=== PATIENT | female | born 1960 | race Caucasian/White ===

== ENCOUNTER 2019-10-24 12:19 | Outpatient (CLI) | payer BC, SELFPAY ==
--- NOTE | 2019-10-24 | ECG_ITS ---
Measurements Intervals Rule Rate: 78 P: 60 WI: 170 QRS: 43 QRSD: 82 T: 33 QT: 370 QTc: 424 Interpretive Statements SINUS RHYTHM BORDERLINE ST ABNORMALITY- ANT/INF LEADS BORDERLINE ECG Electronically Signed On 10-24-2019 14:38:16 AIR TESTER by Marcio Ann D.O.
[2019-10-24 13:06] LABS: Hematocrit 39.3 % (37.0-47.0); Mean Corpuscular HGB Conc 33.1 g/dl (32-36); Mean Corpuscular Hemoglobin 31.7 pg (26-34); Mean Corpuscular Volume 95.9 fl (80-100); Mean Platelet Volume 9.6 fl (7.4-10.4); Platelet Count Result 278 k/mm3 (150-375); Red Cell Distribution Width 12.6 % (11.5-14.5); White Blood Count 5.8 K/mm3 (4.5-10.0)
[2019-10-24 13:12] LABS: Blood Urea Nitrogen 9 mg/dL (7-17); Calcium 9.9 mg/dL (8.4-10.2); Carbon Dioxide 27 mmol/L (22-30); Chloride 101 mmol/L (98-107); Estimated Glomerular Filt Rate > 60; Glucose 95 mg/dL (65-105); Potassium 3.9 mmol/L (3.4-5.0); Sodium 137 mmol/L (137-145)
== END 2019-10-24 12:20 | disposition home or self-care (01) ==
DX: Z01.818 Encounter for other preprocedural examination (principal); R94.31 Abnormal electrocardiogram [ECG] [EKG]
CPT/HCPCS: 36415; 80048; 85027; 93005

== ENCOUNTER 2019-11-16 14:34 | Outpatient (CLI) | payer BC, SELFPAY ==
--- NOTE | ~2019-11-16 | US_ITS ---
EXAMINATION: US venous doppler [facility] DATE: 11/16/2019 15:47 INDICATION: Left leg swelling TECHNIQUE: Mancini scale images without and with compression and Doppler images of the left lower extrem ity veins were obtained. COMPARISON: None. FINDINGS: There is thrombosis of the left posterior tibial and peroneal veins. The left common femora l vein, profunda femoral vein, femoral vein, popliteal vein, and greater saphenous vein are patent. IMPRESSION: 1. Thrombosis of the left posterior tibial and peroneal veins. Reviewed, dictated and finalized at location A. ORMANCE IMPROVEMENT SPECIALIST
== END 2019-11-16 14:35 | disposition home or self-care (01) ==
PROVIDERS: Visit Provider Neurological Surgery
DX: I82.452 Acute embolism and thrombosis of left peroneal vein (principal); I82.442 Acute embolism and thrombosis of left tibial vein
CPT/HCPCS: 93971

== ENCOUNTER 2019-11-22 12:41 | Outpatient (CLI) | payer BC, SELFPAY ==
--- NOTE | ~2019-11-22 | US_ITS ---
EXAMINATION:US venous doppler LE LT INDICATION:History of DVT. Left lower extremity pain TECHNIQUE: Multiple grayscale, color flow and Doppler images of the left lower extremity deep venous systems were obtained and reviewed. COMPARISON:11/16/2019 FINDINGS: The common femoral, superficial femoral and popliteal veins demonstrate normal respiratory variation, augmentation and compressibility. Color flow is also seen within the posterior tibial, pe roneal, greater saphenous and profunda veins. Interval resolution of left lower extremity DVT. IMPRESSION: 1: No lower extremity deep venous thrombosis. Reviewed, dictated and finalized at location B. CAL BILLING ASSISTANT
== END 2019-11-22 12:42 | disposition home or self-care (01) ==
LOC: ANHIMG 12:46
PROVIDERS: Visit Provider Neurological Surgery
DX: R22.42 Localized swelling, mass and lump, left lower limb (principal); M79.662 Pain in left lower leg
CPT/HCPCS: 93971

== ENCOUNTER 2019-12-01 12:58 | Outpatient (CLI) | payer BC, SELFPAY ==
--- NOTE | ~2019-12-01 | US_ITS ---
EXAMINATION: US venous doppler [facility] EXAM DATE: 12/01/2019 13:40 INDICATION: Left leg pain. TECHNIQUE: Multiple grayscale, color flow and Doppler images of the left lower extremity deep venous system were obtained and reviewed. Comparison is made to prior examination from 11/22/2019. FINDINGS: The left common femoral, femoral and profunda veins demonstrate normal color flow, respirat ory variation, augmentation and compressibility. Compressibility, color flow confirmed within the le ft popliteal, posterior tibial, peroneal, and greater saphenous veins. IMPRESSION: 1. No left lower extremity deep venous thrombosis. Reviewed, dictated and finalized at location B.
== END 2019-12-01 12:59 | disposition home or self-care (01) ==
PROVIDERS: Visit Provider Neurological Surgery
DX: R22.42 Localized swelling, mass and lump, left lower limb (principal); M79.662 Pain in left lower leg
CPT/HCPCS: 93971

== ENCOUNTER 2020-02-15 09:43 | Emergency (ER) | payer BC, SELFPAY ==
[2020-02-15 10:01] VITALS: BP 141/89; PULSE 94; RESP 16; TEMP 36.4; O2SAT 98
--- NOTE | 2020-02-15 10:01 | ED.EAR ---
HPI - Ear Problem General Chief complaint: Ear Stated complaint: Ear ache Time Seen by Provider: 02/15/20 10:01 Source: patient Mode of arrival: ambulatory Limitations: no limitations History of Present Illness HPI Narrative: Yumiko Sapp is a 59-year-old female with a PMH of high cholesterol who comes to express care for R ear pain. States has pain into R lower jaw. Related Data Allergies Allergy/AdvReac Type Severity Reaction Status Date / Time No Known Allergies Allergy Mild Verified 12/11/19 14:55 Review of Systems Review of Systems: Narrative: CONSTITUTIONAL: Denies fever, chills, sweats. EYES: Denies visual changes, redness, discharge. ENT: Denies rhinorrhea, congestion, sore throat, R otalgia. CARDIOVASCULAR: Denies chest pain, palpitations, edema. RESPIRATORY: Denies dyspnea, wheezing, cough GASTROINTESTINAL: Denies abdominal pain, nausea, vomiting, diarrhea. GENITOURINARY: Denies dysuria, hematuria, abnormal discharge SKIN: Denies rash or itching. NEUROLOGIC: Denies numbness, or focal weakness. PSYCHIATRIC: Denies anxiety or depression. PMFSH Past Medical History Medical History Back pain History of DVT (deep vein thrombosis) Surgical History Surgical History H/O: hysterectomy History of lumbar surgery S/P cervical spinal fusion Family History Family History Father Carcinoma of colon Hypertension Mother Breast cancer Hypertension Sibling Hypertension Social History Social History Smoking status: Never smoker Second hand tobacco smoke exposure: No Alcohol intake: current Drinks per week: 3 Substance use: never Substance use type: does not use Gender identity (if verbalized by the patient): Female Comments At time of signature, I agree with nursing past medical, surgical, social and family history. There is no relevant family history pertinent to the presenting complaint. Exam Narrative: Exam Narrative: GENERAL: This is a well-nourished, well-developed patient, in mild distress. HEAD: normocephalic, atraumatic. EYES: Sclera clear/white. Vision is grossly intact. EARS: External ears normal, auditory L canals clear and R hard to visualize TM, some hard appearing cerumen in canal. Hearing grossly intact. NOSE: External nose normal without nasal discharge, nares without redness, no rhinorrhea. THROAT: Mucous membranes moist, NECK: Neck supple,R jaw pain below R ear CARDIOVASCULAR: Regular rate and rhythm without murmurs, gallops, or rubs. RESPIRATORY: Clear to auscultation. Breath sounds equal bilaterally. No wheezes, rales, or rhonchi. GASTROINTESTINAL: Abdomen soft, non-tender, SKIN: warm, intact with no suspicious lesions or rash, good texture and turgor. NEURO: awake, alert, and oriented to person, place and time. There were no obvious focal neurologic abnormalities. Steady gait EXTREMITIES: Normal range of motion. BACK: Nontender without deformity Course Course Emergency Course: started on debrox and ear drops Vital Signs Vital signs: Vital Signs Temperature 97.6 F 02/15/20 10:01 Pulse Rate 94 02/15/20 10:01 Respiratory Rate 16 02/15/20 10:01 Blood Pressure 141/89 H 02/15/20 10:01 Pulse Oximetry 98 02/15/20 10:01 Temperature 97.6 F 02/15/20 10:01 Pulse Rate 94 02/15/20 10:01 Respiratory Rate 16 02/15/20 10:01 Blood Pressure 141/89 H 02/15/20 10:01 Pulse Oximetry 98 02/15/20 10:01 Medical Decision Making Differential Diagnosis Differential Diagnosis: Ear pain versus viral infection versus cerumen versus bacterial infection Vital Signs Vital Signs: Vital Signs Temperature 97.6 F 02/15/20 10:01 Pulse Rate 94 02/15/20 10:01 Respiratory Rate 16 02/15/20 10:01 Blood Pressure 141/89 H
== END 2020-02-15 10:28 | disposition home or self-care (01) ==
PROVIDERS: Emergency Provider Nurse Practitioner; PCP Family Medicine
DX: H92.01 Otalgia, right ear (principal); E78.00 Pure hypercholesterolemia, unspecified; Z86.718 Personal history of other venous thrombosis and embolism; Z98.1 Arthrodesis status
CPT/HCPCS: 99213; G0463

== ENCOUNTER → 2020-07-01 15:02 | Outpatient (CLI) | payer BC, SELFPAY ==
--- NOTE | ~2020-07-01 | US_ITS ---
EXAMINATION: US venous doppler [facility] DATE: 07/01/2020 15:30 INDICATION: Lower limb pain TECHNIQUE: Mancini scale images without and with compression and Doppler images of the bilateral lower e xtremity veins were obtained. COMPARISON: 12/01/2019 FINDINGS: The right common femoral vein, profunda femoral vein, femoral vein, popliteal vein, peroneal trunk, p osterior tibial veins, and greater saphenous vein are patent. The left common femoral vein, profunda femoral vein, femoral vein, popliteal vein, peroneal trunk, po sterior tibial veins, and greater saphenous vein are patent. IMPRESSION: 1. Patent bilateral lower extremity veins. No evidence of deep venous thrombosis. Reviewed, dictated and finalized at location A. IMPRESSION: 1. Patent bilateral lower extremity veins. No evidence of deep venous thrombosi s.
== END ==
PROVIDERS: PCP Family Medicine; Visit Provider Physician Assistant
DX: M79.605 Pain in left leg (principal)
CPT/HCPCS: 93970

== ENCOUNTER 2022-09-07 18:57 | Emergency (ER) | payer BC, SELFPAY ==
[2022-09-07 19:07] VITALS: BP 142/63; PULSE 90; RESP 16; TEMP 36.6; O2SAT 100
--- NOTE | 2022-09-07 19:54 | ED.URI ---
HPI - URI/Sore Throat General Chief Complaint: Upper Respiratory Infection Stated Complaint: Sore Throat, Ear, Back, Neck Pain Source: patient Mode of arrival: ambulatory Limitations: no limitations History of Present Illness HPI Narrative: 61-year-old female presents to Express Care complains of sore throat, headache, right ear pain, runny nose, fatigue and diarrhea since yesterday. Patient denies fevers, nausea or vomiting. Patient has been taking [id number] ibuprofen with minimal relief. 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 Patient is influenza vaccinated MD elicited complaint: sore throat, rhinorrhea and nasal congestion Onset (ago): day(s) (2) Able to tolerate fluids by mouth: Yes Exacerbating factors: nothing Context: sick contacts Treatments prior to arrival: ibuprofen Related Data Allergies Allergy/AdvReac Type Severity Reaction Status Date / Time No Known Allergies Allergy Mild Verified 09/07/22 19:05 Review of Systems Constitutional: Constitutional: Denies chills, Denies fatigue, Denies fever(s) and Denies weakness ENT: Denies dizziness, Denies epistaxis, Reports nasal congestion and Reports sore throat Comments: Right ear pain Cardiovascular: Cardiovascular: Denies chest pain Respiratory: Respiratory: Reports cough, Denies dyspnea and Denies wheezing Gastrointestinal: Gastrointestinal: Denies abdominal pain, Denies diarrhea, Denies nausea and Denies vomiting Integumentary/Breasts: Skin/Breast: Denies rash PMFSH Past Medical History Medical History (Updated 09/07/22 @ 19:58 by Katy Serrano APRN) Back pain History of DVT (deep vein thrombosis) Surgical History Surgical History H/O: hysterectomy History of lumbar surgery S/P cervical spinal fusion Family History Family History Father Carcinoma of colon Hypertension Mother Breast cancer Hypertension Sibling Hypertension Social History Social History Smoking status: Never smoker Second hand tobacco smoke exposure: No Alcohol intake: current Drinks per week: 3 Alcohol use details: social drinker Substance use: never Substance use type: does not use Gender identity (if verbalized by the patient): Female Comments At time of signature, I agree with nursing past medical, surgical, social and family history. There is no relevant family history pertinent to the presenting complaint. Exam Const: General: healthy appearing, no acute distress and alert Nutritional Appearance: well nourished Orientation/consciousness: patient oriented x3 Limitations: no limitations HENMT: Head: normal to inspection Ears: external ears normal, EAC's normal and TM abnormal wth effusion serous on the right and erythematous on the right Face and sinus: normal facial exam Mouth: Yes lip normal and Yes moist mucous membranes Throat: posterior oropharynx normal and uvula midline Neck: Neck: normal visual inspection and no lymphadenopathy Resp: Effort & Inspection: normal respiratory effort and not labored Auscultation: clear to auscultation bilaterally, no crackles, no rales, no rhonchi and no wheezes Cardio: Rate: regular rate Rhythm: regular rhythm Heart sounds: no murmurs Skin: General skin exam: normal color Rashes: no rashes Wounds: no wounds Neuro: General: patient oriented x3 Psych: Affect: normal affect Attitude: cooperative Course Course Level of Care: Express Care Visit Vital Signs Vital signs: Vital Signs Temperature 36.6 C 09/07/22 19:07 Pulse Rate 90 09/07/22 19:07 Respiratory Rate 16 09/07/22 19:07 Blood Pressure 142/63 H 09/07/22 19:07 Pulse Oximetry 100 09/07/22 19:07 Oxygen Delivery Room Air 09/07/22 19:07 Temperature 36.6 C 09/07/22 19:07 Pulse
== END 2022-09-07 20:03 | disposition home or self-care (01) ==
PROVIDERS: Emergency Provider Nurse Practitioner Family; PCP Family Medicine
DX: H65.01 Acute serous otitis media, right ear (principal); Z86.718 Personal history of other venous thrombosis and embolism
CPT/HCPCS: 99213; G0463

== ENCOUNTER 2023-09-04 10:00 | Emergency (ER) | payer BC, SELFPAY ==
[2023-09-04 10:10] VITALS: BP 149/88; PULSE 83; RESP 16; TEMP 37.2; O2SAT 100
--- NOTE | 2023-09-04 10:54 | ED.URI ---
HPI - URI/Sore Throat General Chief Complaint: Upper Respiratory Infection Stated Complaint: cough,headache,sore throat Time Seen by Provider: 09/04/23 10:53 Source: patient and RN notes reviewed Mode of arrival: ambulatory Limitations: no limitations History of Present Illness HPI Narrative: 62-year-old female presents with concern for cough, sinus congestion, headache, general malaise, fatigue. Reports she had symptoms around Thanksgiving time and took a steroid. Reports her symptoms improved when she was finished with the steroid they came right back. She reports she has taken Tessalon Perles with occasional relief of cough. MD elicited complaint: cough and nasal congestion Related Data Allergies Allergy/AdvReac Type Severity Reaction Status Date / Time No Known Allergies Allergy Mild Verified 09/04/23 10:26 Review of Systems Review of Systems: CONSTITUTIONAL: Reports malaise, fatigue. Denies chills, sweats, or fever. EYES: Denies visual changes, redness, or discharge. ENT: Reports rhinorrhea, congestion, sinus pain. Denies otalgia and sore throat. CARDIOVASCULAR: Denies chest pain, palpitations, or edema. RESPIRATORY: Reports croupy cough. Denies dyspnea. GASTROINTESTINAL: Denies abdominal pain, nausea, vomiting, diarrhea SKIN: Denies rash or itching. MUSCULOSKELETAL: Denies myalgia. NEUROLOGIC: Denies headache. All systems reviewed & are unremarkable except as noted in HPI and below PMFSH Past Medical History Medical History (Updated 09/04/23 @ 11:01 by Constance Mcdermott NP) Back pain History of DVT (deep vein thrombosis) Surgical History Surgical History H/O: hysterectomy History of lumbar surgery S/P cervical spinal fusion Family History Family History Father Carcinoma of colon Hypertension Mother Breast cancer Hypertension Sibling Hypertension Social History Social History Smoking status: Never smoker Second hand tobacco smoke exposure: No Alcohol intake: current Drinks per week: 3 Alcohol use details: social drinker Substance use: never Substance use type: does not use Living arrangements: with family Occupation/Education: occupation Gender identity (if verbalized by the patient): Female Comments At time of signature, agree with nursing past medical, surgical, social and family history. There is no relevant family history pertinent to the presenting complaint Exam Narrative: GENERAL: Well-appearing, well-nourished, and in no acute distress. HEAD: Normocephalic EYES: PERRLA, conjunctivae clear ENT: Nares clear, turbinates edematous and erythematous. Mucous membranes moist. TM pearly morrell with dull light reflex bilaterally; no tragal tenderness. Oropharynx not erythematous without lesions. Tonsils not enlarged and without exudate, no drooling, no hoarseness, no trismus, uvula midline. NECK: Supple. No lymphadenopathy CHEST: Clear to auscultation, breath sounds equal. No wheezing, rhonchi, rales, or stridor. No respiratory distress, speaks in full sentences. Cough noted HEART: Regular rate and rhythm. No murmur heard. SKIN: Warm, dry, no rash. NEURO: Alert and oriented x3. PSYCH: Normal mood and affect Course Course Emergency Course: Patient is aware of diagnosis, understands and agrees to treatment plan. Anticipatory guidance given. Patient agrees to follow-up as directed and is aware of reasons to seek care at the emergency department. Portions of this record may have been created with voice recognition software Level of Care: Express Care Visit Vital Signs Vital signs: Vital Signs Temperature 99 F 09/04/23 10:10 Pulse Rate 83 09/04/23 10:10 Respiratory Rate 16 09/04/23 10:10 Blood Pressure 149/88 H 09/04/23 10:10 Pulse Oximetry 100 09/04/23 10:10 Oxygen Delivery
== END 2023-09-04 11:12 | disposition home or self-care (01) ==
PROVIDERS: Emergency Provider Nurse Practitioner; PCP Family Medicine
DX: J32.9 Chronic sinusitis, unspecified (principal); J40 Bronchitis, not specified as acute or chronic; Z86.718 Personal history of other venous thrombosis and embolism
CPT/HCPCS: 99213; G0463

== ENCOUNTER 2024-05-23 16:02 | Outpatient (CLI) | payer BC, SELFPAY ==
--- NOTE | ~2024-05-23 | XR_ITS ---
EXAMINATION: XR hand BI arthritis min 3V DATE: 05/23/2024 16:18 INDICATION: Stiffness of unspecified hand, not elsewhere classified. Hand pain. TECHNIQUE: 4 views of right hand and 4 views of left hand were obtained. COMPARISON: Left hand radiographs 08/08/2012 FINDINGS: RIGHT HAND: Alignment is normal. No fracture. There is mild osteoarthritis of first carpometacarpal j oint and most of the metacarpophalangeal joints and interphalangeal joints. There is moderate osteoar thritis of first interphalangeal joint and second and third distal interphalangeal joints. LEFT HAND: Alignment is normal. No fracture. There is moderate osteoarthritis of first carpometacarpa l joint and mild osteoarthritis of most of the metacarpophalangeal joints and interphalangeal joints. There is moderate osteoarthritis of first interphalangeal joint and second and fourth distal interph alangeal joints and severe osteoarthritis of third distal interphalangeal joint. IMPRESSION: 1. Polyarticular osteoarthritis. Reviewed, dictated and finalized at location A.
== END 2024-05-23 16:03 | disposition home or self-care (01) ==
PROVIDERS: PCP Physician Assistant Medical; Visit Provider Physician Assistant Medical
DX: M15.9 Polyosteoarthritis, unspecified (principal); M25.622 Stiffness of left elbow, not elsewhere classified; M25.621 Stiffness of right elbow, not elsewhere classified
CPT/HCPCS: 73130

== ENCOUNTER 2024-09-04 16:56 | Emergency (ER) | payer BC, SELFPAY ==
--- NOTE | ~2024-09-04 | US_ITS ---
EXAMINATION: US venous doppler [facility] DATE: 09/04/2024 18:35 INDICATION: Right calf pain. TECHNIQUE: Grayscale ultrasound images without and with compression and Doppler ultrasound images of the right lower extremity veins were obtained. COMPARISON: Ultrasound 07/01/2020 FINDINGS: The visualized portions of right common femoral vein, profunda (deep) femoral vein, femoral vein, pop liteal vein, peroneal veins, posterior tibial veins, and greater saphenous vein outflow are patent. IMPRESSION: 1. No deep venous thrombosis. Reviewed, dictated and finalized at location A. ICAL ANALYST
[2024-09-04 17:28] VITALS: BP 175/86; PULSE 87; RESP 16; TEMP 36.7; O2SAT 100
--- NOTE | 2024-09-04 17:31 | ED_ITS ---
HPI - Extremity Problem General Chief complaint: Extremity Problem,Nontraumatic Stated complaint: R LEG PAIN, HX DVT TO L LEG Time Seen by Provider: 09/04/24 18:42 63-year-old female presents with right lower leg pain started 1 week ago. patient having increased pain. history of DVT in left lower leg. patient is not on blood thinner General appearance: Well-developed, well-nourished Skin: Normal color Head: Normocephalic, nontraumatic Eyes: Clear conjunctiva ENT: Oropharynx normal, ears normal, nose normal Neck: Supple, nontender Chest and respiratory: Airway patent, no respiratory distress, no accessory muscle use Heart: Regular rate/rhythm Abdomen: Soft, nontender, no organomegaly, quiet bowel sounds Vascular: Normal peripheral pulses, normal capillary refill. Musculoskeletal: Normal range of motion, nontender back. tenderness to right medial aspect of CT. no obvious swelling Neurologic: Alert and oriented ?3, COMMERCIAL REPRESENTATIVE is normal as tested, no gross motor deficit History of Present Illness HPI Narrative: see mse Related Data Allergies Allergy/AdvReac Type Severity Reaction Status Date / Time No Known Allergies Allergy Mild Verified 09/04/24 16:57 Review of Systems 2 Review of Systems: All systems reviewed & are unremarkable except as noted in HPI and below Musculoskeletal: Musculoskeletal: Reports as per HPI PMFSH Past Medical History Medical History (Updated 09/04/24 @ 18:50 by Kedar Wood APRN) History of DVT (deep vein thrombosis) Back pain Surgical History Surgical History History of lumbar surgery H/O: hysterectomy S/P cervical spinal fusion Family History Family History Father Carcinoma of colon Hypertension Mother Breast cancer Hypertension Sibling Hypertension Social History Social History Smoking status: Never smoker Second hand tobacco smoke exposure: No Alcohol intake: current Drinks per week: 3 Alcohol use details: social drinker Substance use: never Substance use type: does not use Living arrangements: with family Occupation/Education: occupation Gender identity (if verbalized by the patient): Female Exam 2 Narrative: GENERAL: Well-appearing, well-nourished, and in no acute distress. HEAD: Normocephalic, atraumatic. EYES: PERRLA and EOMI. ENT: Nares clear, no rhinorrhea or epistaxis. Mucous membranes moist. NECK: Supple. CHEST: Clear to auscultation. No respiratory distress. HEART: Regular rate and rhythm. No murmur heard. Normal peripheral pulses. ABDOMEN: Soft, nontender, nondistended, normal active bowel sounds. EXTREMITIES: Normal range of motion. No edema. tenderness to right anterior lower leg, slight swelling SKIN: Warm, dry, no rash. NEURO: No focal deficits. Alert and oriented x3. PSYCH: Normal mood and affect. Course Vital Signs Vital signs: Vital Signs Temperature 36.7 C 09/04/24 17:28 Pulse Rate 87 09/04/24 17:28 Respiratory Rate 16 09/04/24 17:28 Blood Pressure 175/86 H 09/04/24 17:28 Pulse Oximetry 100 09/04/24 17:28 Oxygen Delivery Room Air 09/04/24 17:28 Temperature 36.7 C 09/04/24 17:28 Pulse Rate 87 09/04/24 17:28 Respiratory Rate 16 09/04/24 17:28 Blood Pressure 175/86 H 09/04/24 17:28 Pulse Oximetry 100 09/04/24 17:28 Oxygen Delivery Room Air 09/04/24 17:28 MDM - Extremity (Nontraumatic) Differential Diagnosis Differential diagnosis: Likely other (DVT vs contusion vs calf strain) Lab Data 09/04/24 17:41 09/04/24 17:41 Labs: Lab Results 09/04/24 Range/Units 17:41 WBC 6.0 (4.5-10.0) K/mm3 RBC 4.00 L (4.2-5.4) M/mm3 Hgb 12.7 (12.0-15.0) g/dL Hct 37.6 (37.0-47.0) % MCV 94.0 (80-100) fl MCH 31.8 (26-34) pg MCHC 33.8 (32-36) g/dl RDW 12.2 (11.5-14.5) % Plt Count 260 (150-375) k/mm3 MPV 9.4 (7.4-10.4) fl Immature Gran % (Auto) 0.2 (0-0.5) % Neut % (Auto) 55.6 (45.5-73.1) % Lymph % (Auto) 33.8 (18.3-44.2) % Lipscomb % (Auto) 7.2 (2.6-8.5) % Eos % (Auto) 2.7 (0-4.4) % Baso % (Auto) 0.5 (0.2-1.2) % Lymph # (Auto) 2.03 (0.9-3.2) K/mm3 Lipscomb # (Auto) 0.4 (0.1-0.6) K/mm3 Eos # (Auto) 0.2 (0-0.3) K/mm3 Baso # (Auto) 0.0 (0.0-0.1) K/mm3 Abs Immat Gran (auto) 0.01 (0.00-0.031) K/mm3 Absolute Neuts (auto) 3.4 (1.3-6.7) K/mm3 Absolute Nucleated RBC 0.000 (0.0-0.012) K/mm3 Nucleated RBC % 0.0 (0.0-0.2) % D-Dimer 0.39 (<0.48) ug/mL Sodium 137 (137-145) mmol/L Potassium 3.5 (3.4-5.0) mmol/L Chloride 105 (98-107) mmol/L Carbon Dioxide 29 (22-30) mmol/L Anion Gap 3 L (4-12) mmol/L BUN 14 D (7-17) mg/dL Creatinine 0.80 (0.7-1.0) mg/dL Estim Creat Clear Calc 53 ml/min Estimated GFR > 60 (59 - ) Glucose 93 (65-110) mg/dL Calcium 9.4 (8.4-10.2) mg/dL Discharge Plan Discharge Clinical Impression: Strain of right calf muscle Patient Disposition: Home, Self-Care Condition: Stable Instructions: Antibiotic Form, Muscle Strain (ED) Additional Instructions: Take Motrin for pain Apply ice 4 times a day Apply compression Return for any worsening Patient Language: Hungarian Prescriptions: No Action diltiazem HCl 30 mg tablet 30 mg PO .daily at bedtime Qty: 90 2RF duloxetine [Cymbalta] 60 mg capsule,delayed release(DR/EC) 60 mg PO DAILY Qty: 90 1RF Follow-up/Referrals: Kathleen Yan PA-C [Primary Care Provider] - Time of Disposition: 18:50
[2024-09-04 17:55] LABS: Basophils Percent Auto 0.5 % (0.2-1.2); Eosinophils Absolute Auto 0.2 K/mm3 (0-0.3); Eosinophils Percent Auto 2.7 % (0-4.4); Hematocrit 37.6 % (37.0-47.0); Hemoglobin 12.7 g/dL (12.0-15.0); Immature Granulocyte Absolute 0.01 K/mm3 (0.00-0.031); Immature Granulocyte Percent A 0.2 % (0-0.5); Lymphocytes Absolute Auto 2.03 K/mm3 (0.9-3.2); Lymphocytes Percent Auto 33.8 % (18.3-44.2); Mean Corpuscular HGB Conc 33.8 g/dl (32-36); Mean Corpuscular Hemoglobin 31.8 pg (26-34); Mean Platelet Volume 9.4 fl (7.4-10.4); Monocytes Absolute Auto 0.4 K/mm3 (0.1-0.6); Monocytes Percent Auto 7.2 % (2.6-8.5); Neutrophils Absolute Auto 3.4 K/mm3 (1.3-6.7); Neutrophils Percent Auto 55.6 % (45.5-73.1); Platelet Count Result 260 k/mm3 (150-375); Red Cell Distribution Width 12.2 % (11.5-14.5)
[2024-09-04 18:15] LABS: Anion Gap 3 mmol/L (4-12); Blood Urea Nitrogen 14 mg/dL (7-17); Calcium 9.4 mg/dL (8.4-10.2); Carbon Dioxide 29 mmol/L (22-30); Chloride 105 mmol/L (98-107); Estimated CRCL calculation 53 ml/min; Estimated Glomerular Filt Rate > 60; Glucose 93 mg/dL (65-110); Potassium 3.5 mmol/L (3.4-5.0); Sodium 137 mmol/L (137-145)
[2024-09-04 18:21] LABS: D Dimer 0.39 ug/mL (<0.48)
[2024-09-04 19:11] VITALS: BP 130/78; PULSE 78; RESP 18; TEMP 36.7; O2SAT 99
== END 2024-09-04 19:11 | disposition home or self-care (01) ==
PROVIDERS: Emergency Provider Nurse Practitioner Family; PCP Physician Assistant Medical
DX: S86.911A Strain of unspecified muscle(s) and tendon(s) at lower leg level, right leg, initial encounter (principal); Z86.718 Personal history of other venous thrombosis and embolism; Z98.1 Arthrodesis status; Z90.710 Acquired absence of both cervix and uterus; Z79.899 Other long term (current) drug therapy; X58.XXXA Exposure to other specified factors, initial encounter
CPT/HCPCS: 36415; 80048; 85025; 85380; 93971; 99284